=== PATIENT | female | born 1950 | race Caucasian/White ===

== ENCOUNTER → 2024-09-23 14:26 | Outpatient (CLI) | payer MEDICARE, SELFPAY ==
--- NOTE | 2024-09-23 14:30 | DI.RAD.S_ITS ---
PROCEDURE: XR WRIST LT MIN 3V INDICATIONS: Wrist pain TECHNIQUE: 4 views of the wrist were acquired. COMPARISON: None. FINDINGS: Bones: Moderately displaced comminuted distal radial fracture with intra-articular extension. No suspicious bony lesions. Soft tissues: No suspicious soft tissue calcifications. IMPRESSION: Moderately displaced comminuted distal radial fracture with intra-articular extension. Dictated by: Jim Bassett M.D. on 09/24/2024 at 6:24 Approved by: Jim Bassett M.D. on 09/24/2024 at 6:25
== END ==
PROVIDERS: Referring Provider Physician Assistant; Visit Provider Physician Assistant
DX: S52.572A Other intraarticular fracture of lower end of left radius, initial encounter for closed fracture (principal); S63.502A Unspecified sprain of left wrist, initial encounter; X58.XXXA Exposure to other specified factors, initial encounter
CPT/HCPCS: 73110

== ENCOUNTER → 2025-04-29 11:54 | Outpatient (CLI) | payer MEDICARE, SELFPAY | PROVIDERS: Visit Provider Physician Assistant | DX: J02.9 Acute pharyngitis, unspecified (principal) | CPT/HCPCS: 87070 ==

== ENCOUNTER 2025-05-01 06:47 | Emergency (ER) | payer MEDICARE, SELFPAY ==
[2025-05-01] VITALS (9 sets, daily range): BP systolic 136–173; BP diastolic 61–79; PULSE 67–84; RESP 16–18; TEMP 36.4–36.9; O2SAT 95–100; BMI 24.0
--- NOTE | 2025-05-01 07:19 | ED_ITS ---
HPI - URI/Sore Throat General Chief Complaint: Upper Respiratory Symptoms Stated Complaint: SOB 4 days Time Seen by Provider: 05/01/25 06:58 Source: patient Mode of arrival: Ambulatory History of Present Illness HPI Narrative: Patient here with for complaints of sore throat and difficulty swallowing and this morning got worsened at trouble breathing. Patient in no distress. No stridor. Speaking full sentences without difficulty. No hot potato voice. Patient uncertain if she still has her tonsils. No known sick contacts. No foreign travel. No known allergies. No cough cold or congestion. Had fever and chills. Patient states symptoms started last . Related Data Home Medications ?Medication ?Instructions ?Recorded ?Confirmed amlodipine 5 mg tablet 5 mg PO DAILY 09/20/2405/01 atorvastatin 20 mg tablet 20 mg PO DAILY 09/20/2404/15 hydrochlorothiazide 25 mg tablet 25 mg PO DAILY 05/01/25 lisinopril 40 mg tablet 40 mg PO DAILY 09/20/2404/15 Previous Rx's ?Medication ?Instructions ?Recorded clindamycin HCl 300 mg capsule 300 mg PO Q8H #21 caps 05/01/25 methylprednisolone 4 mg tablets in See Rx Instructions PO .COMPLEX 05/01/25 a dose pack (Medrol (Humberto)) #21 ea Allergies Allergy/AdvReac Type Severity Reaction Status Date / Time No Known Drug Allergies Allergy Verified 05/01/25 06:52 Review of Systems Review of Systems Narrative: GENERAL: Positive chills, fatigue, malaise, fever, negative sweats. HEENT: Negative sinus pain, ear pain, positive sore throat RESPIRATORY: Negative dyspnea, cough CARDIOVASCULAR: Negative chest pain, palpitations GASTROINTESTINAL: Negative vomiting, nausea, abdominal pain : Negative dysuria, frequency, hematuria MUSCULOSKELETAL: Negative muscle or bony pain SKIN: Negative rash, skin lesions NEUROLOGIC: Negative weakness, numbness ROS Unobtainable: All systems reviewed & are unremarkable except as noted in HPI and below Patient History Medical History (Updated 05/01/25 @ 09:46 by Harmeet Tristan MD) Wrist sprain Social History Smoking Status: Never smoker Smoking Status: Never smoker Alcohol type: wine Exam Narrative Exam Narrative: GENERAL: in no distress, not toxic not dyspneic HEAD: Normocephalic. EYES: Pupils equal round ENT: Mucous membranes moist. There is right peritonsillar/pharyngeal erythema edema but no uvula shift. No malocclusion or trismus. No tongue elevation or drooling. No exudates seen. NECK: Trachea midline. No stridor. No midline shift. CARDIOVASCULAR: Regular rate and rhythm RESPIRATORY: Clear to auscultation. Breath sounds equal bilaterally. No wheezes, rales, or rhonchi. GASTROINTESTINAL: Abdomen soft, non-tender BACK: No flank tenderness. EXTREMITIES: No gross deformities. NEURO: AOx4. Clear speech SKIN: Warm and dry PSYCH: Not anxious, is cooperative Initial Vital Signs Initial Vital Signs: Vital Signs Temperature 97.6 F 05/01/25 06:53 Pulse Rate 83 05/01/25 06:53 Respiratory Rate 16 05/01/25 06:53 Blood Pressure 140/74 05/01/25 06:53 Pulse Oximetry 97 05/01/25 06:53 Oxygen Delivery Method Room Air 05/01/25 06:53 Course Orders Ordered: Discontinued Medications Clindamycin HCl (Clindamycin 150 Mg Capsule) 300 mg PO NOW ONE Stop: 05/01/25 09:42 Last Admin: 05/01/25 09:50 Dose: 300 mg Documented By: RADHA Sodium Chloride (Normal Saline 0.9%) 500 mls @ 1,000 mls/hr IV BOLUS ONE Stop: 05/01/25 07:49 Last Infusion: 05/01/25 08:14 Dose: Infused Documented By: Admin: 05/01/25 07:37 Dose: 1,000 mls/hr Documented By: EMILY Dexamethasone 20 mg/ Sodium (Chloride) 52 mls @ 208 mls/hr IV NOW ONE Stop: 05/01/25 07:21 Last Infusion: 05/01/25 08:08 Dose: Infused Documented By: Admin: 05/01/25 07:37 Dose: 208 mls/hr Documented By: EMILY Vital Signs Vital signs: Vital Signs - 8 hr 05/01/25 06:53 05/01/25 07:45 05/01/25 08:00 Temperature 97.6 F Pulse Rate 83 70 73 Respiratory Rate 16 Blood Pressure 140/74 Pulse Oximetry 97 97 98 Oxygen Delivery Method Room Air 05/01/25 08:03 05/01/25 08:03 05/01/25 08:36 Temperature 98.5 F Pulse Rate 67 74 77 Respiratory Rate 18 Blood Pressure 167/76 H Pulse Oximetry 99 100 97 Oxygen Delivery Method 05/01/25 08:36 05/01/25 09:00 05/01/25 09:00 Temperature Pulse Rate 74 Respiratory Rate Blood Pressure 157/70 H 136/61 Pulse Oximetry 95 Oxygen Delivery Method MDM - URI/Sore Throat Lab Data 05/01/25 07:40 05/01/25 07:40 Labs: Lab Results 05/01/25 05/01/25 05/01/25 Range/Units 07:40 08:10 09:25 WBC 8.7 (4.5-11.0) X10^3/uL RBC 4.05 (4.0-5.2) X10^6/uL Hgb 12.6 (12.0-16.0) g/dL Hct 36.1 (36-46) % MCV 89.1 (80-100) fL MCH 31.1 (26-34) PG MCHC 34.9 (30-36) % RDW 12.8 (11.6-14.8) % Plt Count 198 (150-400) X10^3/uL Neut % (Auto) 78.4 H (50-75) % Lymph % (Auto) 9.2 L (25-40) % [place] % (Auto) 10.6 (3-14) % Eos % (Auto) 1.3 L (2-4) % Baso % (Auto) 0.5 (0-2) % Neut # (Auto) 6900 (9987-1370) /uL Lymph # (Auto) 800 L (5940-0285) /uL [place] # (Auto) 900 (0-900) /uL Eos # (Auto) 100 (0-450) /uL Baso # (Auto) 0 (0-100) /uL Sodium 137 (137-145) mmol/L Potassium 3.5 (3.4-5.1) mmol/L Chloride 99 (98-107) mmol/L Carbon Dioxide 28 (22-32) mmol/L BUN 16 (7-17) mg/dL Creatinine 0.55 (0.52-1.04) mg/dL Estimated GFR > 60 (>60) mL/min BUN/Creatinine Ratio 29.1 H (6-22) Glucose 111 H (70-99) mg/dL Calcium 9.6 (8.4-10.2) mg/dL Total Bilirubin 2.1 H (0.2-1.3) mg/dL AST 33 (14-36) IU/L ALT 26 (<35) IU/L Alkaline Phosphatase 147 H (38-126) U/L Total Protein 7.9 (6.3-8.2) g/dL Albumin 4.6 (3.5-5.0) g/dL Globulin 3.3 (1.7-4.1) g/dL Albumin/Globulin Ratio 1.4 (1.0-2.8) Chlamy pneumoniae PCR Not detected (Not Detect) Adenovirus (PCR) Not detected (Not Detect) B. pertussis DNA (PCR) Not detected (Not Detect) B.parapertussis DNA PCR Not detected (Not Detecte) Coronavirus OC43 (PCR) Not detected (Not Detect) Coronavirus HKU1 (PCR) Not detected (Not Detect) Coronavirus 229E (PCR) Not detected (Not Detect) SARS-CoV-2 (PCR) Not detected (Not Detecte) Coronavirus NL63 (PCR) Not detected (Not Detect) Human Metapneumovir PCR Not detected (Not Detect) Influenza Type A (PCR) Not detected (Not Detect) Influenza Type B (PCR) Not detected (Not Detect) M. pneumoniae (PCR) Not detected (Not Detect) Parainfluenza 1 (PCR) Not detected (Not Detect) Parainfluenza 2 (PCR) Not detected (Not Detect) Parainfluenza 3 (PCR) Not detected (Not Detect) Parainfluenza 4 (PCR) Not detected (Not Detect) RSV (PCR) Not detected (Not Detect) Entero/Rhino (PCR) Not detected (Not Detect) Group A Strep (PCR) Negative (Negative) Imaging Data CT soft tissue neck: Radiologist's Impression: [address] [address] [address] Scan Report Signed Patient: Lisandra Ordoñez MR#: [id number] : 1950 Acct:[id number] Age/Sex: 75 / F Date of Service: 05/01/25 Loc: ED Accession Number: [id number] Procedure: CT soft tissue neck w con Ordering Provider: Harmeet Tristan MD PROCEDURE: CT SOFT TISSUE NECK W CON INDICATIONS: throat pain TECHNIQUE: After the administration of intravenous contrast, 3.0 mm axial sections acquired from the sella to the aortic arch. Additional oblique axial 3.0 mm sections acquired through the pharynx. 3 mm thick coronal and sagittal reformats were generated. For radiation dose reduction, the following was used: automated exposure control. COMPARISON: None. FINDINGS: Image quality: Excellent. Lymph nodes: No enlarged lymph nodes seen throughout the neck. Vessels: Visualized vasculature appears patent. Neck spaces: There is asymmetric right oral pharyngeal soft tissue prominence with heterogeneous enhancement and central area of hypodensity measures approximately 3.3 x 2.3 x 2.5 cm in size series 2, image 44, series 5, image 64. Narrowing of right oral pharyngeal airway is seen. No other soft tissue mass or drainable fluid collection is seen. There is effacement of right piriform sinus. Rest of the airway is patent. Glands: The parotid and submandibular glands appear normal. Thyroid gland is within normal limits. Miscellaneous: Visualized brain and orbits appear normal. 6 x 7 mm solid nodule is seen in posterior left upper lobe series 3, image 24. 4 mm solid nodule in anterolateral right upper lobe series 3, image 39. Additional bilateral upper lung field solid nodules are also seen measures up to 4 mm in size series 3, images 33, 40 and 41. Bones: No suspicious bony lesions. Visualized sinuses and mastoids appear unremarkable. IMPRESSION: 1. Asymmetric prominence of right oral pharyngeal soft tissue with ill-defined heterogeneously enhancing area and internal hypodensity concerning for necrotic mass versus right parapharyngeal tonsillitis and tonsillar abscess collection suggest clinical correlation. Effacement of right piriform sinus and right-sided narrowing of oral pharyngeal airway at this level is seen. 2. Multiple pulmonary nodules as described above, neoplastic process cannot be excluded. 3. No significant neck soft tissue lymphadenopathy. Dictated by: Temo Chiang M.D. on 05/01/2025 at 8:37 Approved by: Temo Chiang M.D. on 05/01/2025 at 8:49 [facility] Narrative Medical decision making narrative: Patient here with for complaints of sore throat and difficulty swallowing and this morning got worsened at trouble breathing. Patient in no distress. No stridor. Speaking full sentences without difficulty. No hot potato voice. Patient uncertain if she still has her tonsils. No known sick contacts. No foreign travel. No known allergies. No cough cold or congestion. Had fever and chills. Patient's symptoms started last . MDM After history and exam, CT soft tissue neck CBC CMP strep screen respiratory panel Decadron normal saline Differential considered: Includes but not limited to strep pharyngitis tonsillar abscess retropharyngeal abscess Medical records reviewed: Walk-in clinic visit April 29, 2025 Lab Test results independently reviewed as above. Pertinent findings: WBC 8.7 hemoglobin 12.6 BUN 16 creatinine 0.55 respiratory panel negative, strep screen pending at discharge but will not environmental change analyst as patient is on antibiotics. Imaging studies independently reviewed: CT soft tissue neck Asymmetric prominence of right oral pharyngeal soft tissue with ill-defined heterogeneously enhancing area and internal hypodensity concerning for necrotic mass versus right parapharyngeal tonsillitis and tonsillar abscess collection suggest clinical correlation. Effacement of right piriform sinus and right-sided narrowing of oral pharyngeal airway at this level is seen. Consultations: 9:23 a.m.. Spoke with Otolaryngology, Brock Neville,, who will review imaging with attendings and call us back for disposition and treatment plan. 9:39 a.m.. Spoke with Brock with otolaryngology again, he has reviewed imaging with attendings Dr. Dawson as well as Dr. Rinaldi, at this time likely peritonsillar abscess. Treat with clindamycin and steroids and they will follow up with patient in 1 week. Re-evaluations: 9:10 a.m.. Spoke with patient CT findings. Awaiting call back from Otolaryngology for treatment and disposition. Patient in no distress. Airway intact. No trouble swallowing. 9:40 a.m.. I reviewed with patient and has been my discussion with Otolaryngology and at this time she will diagnosis neoplasm/cancer versus infection. We will treat for likely infection right now and will need close follow up within next week ENT. They agree with this plan. Discussion: IV contrast use for CT imaging. Appropriate for discharge home. Antibiotics have been started steroids have been started. ENT has been consulted. Airway intact. No respiratory distress. Reviewed with patient and return precautions and follow up plan. They agree. Diagnosis: Neck mass Discharge Plan Departure Patient Disposition: Home Clinical Impression: Mass of right side of neck Instructions: DI for Peritonsillar Abscess -- Adult Activity Restrictions/Additional Instructions: You are being treated for possible peritonsillar abscess. However a mass could be present as well. [facility] been [facility] would like to see you in 1 week for re-evaluation. Please continue antibiotic later today. Please continue steroid back tomorrow. Keep well hydrated. Return immediately if worse if any questions concerns or any trouble swallowing or breathing. Prescriptions: New clindamycin HCl 300 mg capsule 300 mg PO Q8H Qty: 21 0RF methylprednisolone [Medrol (Humberto)] 4 mg tablets,dose pack See Rx Instructions .ROUTE .COMPLEX Qty: 21 0RF Rx Instructions: orally per package directions No Action lisinopril 40 mg tablet 40 mg PO DAILY hydrochlorothiazide 25 mg tablet 25 mg PO DAILY amlodipine 5 mg tablet 5 mg PO DAILY atorvastatin 20 mg tablet 20 mg PO DAILY Referrals: Brock Neville, [facility] [[facility]] Stand Alone Forms: Patient Portal/API
[2025-05-01] MEDS: SODIUM CHLORIDE 0.9% 500 ML 1000 ML IV (07:37)
[2025-05-01 07:53] LABS: Add Manual Diff / Slide Review NO; Hematocrit 36.1 % (36-46); Hemoglobin 12.6 g/dL (12.0-16.0); Lymphocytes Absolute Auto 800 /uL (1100-4500); Mean Corpuscular HGB Conc 34.9 % (30-36); Mean Corpuscular Hemoglobin 31.1 PG (26-34); Mean Corpuscular Volume 89.1 fL (80-100); Platelet Count 198 X10^3/uL (150-400)
[2025-05-01 08:07] LABS: Alanine Aminotransferase 26 IU/L (<35); Albumin 4.6 g/dL (3.5-5.0); Albumin Globulin Ratio 1.4 (1.0-2.8); Alkaline Phosphatase 147 U/L (38-126); Blood Urea Nitrogen 16 mg/dL (7-17); Calcium 9.6 mg/dL (8.4-10.2); Carbon Dioxide 28 mmol/L (22-32); Chloride 99 mmol/L (98-107); Estimated Glomerular Filt Rate > 60 mL/min (>60); Globulin 3.3 g/dL (1.7-4.1); Glucose 111 mg/dL (70-99); HEMOLYSIS < 15 (0-50); Potassium 3.5 mmol/L (3.4-5.1); Sodium 137 mmol/L (137-145); Total Protein 7.9 g/dL (6.3-8.2)
[2025-05-01 09:05] LABS: Coronavirus NL 63 Not Detected (Not Detect); SARS- CoV-2 Not Detected (Not Detecte)
[2025-05-01 09:50] LABS: Strep Grp A by PCR Rapid Negative (Negative)
[2025-05-01] MEDS: CLINDAMYCIN 150 MG CAPSULE 300 MG PO (09:50)
== END 2025-05-01 10:04 | disposition home or self-care (01) ==
PROVIDERS: Emergency Provider Emergency Medicine
DX: R22.1 Localized swelling, mass and lump, neck (principal)
CPT/HCPCS: 36415; 70491; 80053; 85025; 87633; 87651; 96365; 99284; J1100; J7040; Q9967

== ENCOUNTER → 2025-06-13 09:40 | Outpatient (CLI) | payer MEDICARE, SELFPAY ==
[2025-06-13 13:16] LABS: Influenza A - CEPHEID Flu A NEGATIVE (NEGATIVE); Influenza B - CEPHEID Flu B NEGATIVE (NEGATIVE)
[2025-06-13 13:17] LABS: COVID-19 CEPHEID 4-PLEX PCR Negative (Negative)
== END ==
PROVIDERS: Referring Provider Physician Assistant; Visit Provider Physician Assistant
DX: R05.9 Cough, unspecified (principal)
CPT/HCPCS: 87637

== ENCOUNTER → 2025-06-13 10:02 | Outpatient (CLI) | payer MEDICARE, SELFPAY ==
--- NOTE | 2025-06-13 10:03 | DI.RAD.S_ITS ---
PROCEDURE: XR CHEST 2V INDICATIONS: cough x 4 weeks TECHNIQUE: 2 views of the chest were acquired. COMPARISON: None. FINDINGS: Surgical changes and devices: None. Lungs and pleura: Mild diffuse interstitial prominence. No focal consolidation. No pleural effusion or pneumothorax. Mediastinum: Mediastinal contours are normal. Heart size is normal. Bones and chest wall: No suspicious bony abnormalities. Soft tissues appear unremarkable. IMPRESSION: Diffuse interstitial prominence may be secondary to a viral or atypical pneumonia or mild edema. No consolidation. Approved by: Brennan Nicholson M.D. on 06/13/2025 at 10:34
== END ==
PROVIDERS: Referring Provider Physician Assistant; Visit Provider Physician Assistant
DX: R05.9 Cough, unspecified (principal)
CPT/HCPCS: 71046; 87637